=== PATIENT | female | born 1965 | race Caucasian/White ===

== ENCOUNTER 2016-03-27 19:37 | Emergency (ER) | payer OTHER ==
[2016-03-27 19:56] VITALS: BP 103/77; PULSE 107; RESP 16; TEMP 98.2; O2SAT 92
== END 2016-03-27 19:49 | disposition left against medical advice (07) ==
LOC: CED 19:37
DX: Z53.9 Procedure and treatment not carried out, unspecified reason (principal); R41.0 Disorientation, unspecified

== ENCOUNTER → 2017-02-04 | Outpatient (CLI) | payer OTHER ==
[~2017-02-04] MED LIST: IBUPROFEN 600 MG TAB PO ONE
== END ==
LOC: CIMAGING 09:29
DX: Z12.31 Encounter for screening mammogram for malignant neoplasm of breast (principal)
CPT/HCPCS: G0202